=== PATIENT | female | born 1940 | race Caucasian/White ===

== ENCOUNTER → 2017-03-22 | Outpatient (CLI) | payer MEDICARE, OTHER ==
[~2017-03-22] MED LIST: CALCIUM600 MG PO; FEMARA 2.5 MG2.5 MG PO; IBRANCE125 MG PO; OCUVITE SOFTGE1 EACH PO
== END | disposition disaster alternative care site (69) ==
LOC: GRAD 10:48
DX: C79.51 Secondary malignant neoplasm of bone (principal); L27.0 Generalized skin eruption due to drugs and medicaments taken internally; C50.919 Malignant neoplasm of unspecified site of unspecified female breast; M47.896 Other spondylosis, lumbar region; M48.06 Spinal stenosis, lumbar region; R18.8 Other ascites
CPT/HCPCS: A9503